=== PATIENT | male | born 1960 ===

== ENCOUNTER 2017-05-01 16:46 | Emergency (ER) | payer SELFPAY ==
[2017-05-01 19:28] LABS: #Basophils 0.1 thou/uL (0.0-0.2); #Eosinphils 0.1 thou/uL (0.0-0.7); #Lymphocytes 1.2 thou/uL (1.20-3.40); #Monocytes 0.4 thou/uL (0.11-0.59); #Neutrophils 3.5 thou/uL (1.40-6.50); %Eosinophils 2.7 % (0.0-10.0); %Lymphocytes 22.3 % (21.0-51.0); %Monocytes 7.5 % (0.0-10.0); %Neutrophils 66.5 % (42.0-75.0); Hemoglobin 14.1 g/dL (14.0-18.0); Mean Corpuscular HGB CONC 32.9 g/dL (32.0-36.0); Mean Corpuscular Hemoglobin 27.6 pg (27.0-31.0); Mean Corpuscular Volume 83.9 fl (80.0-94.0); Mean Platelet Volume 7.8 fL (7.4-10.4); Platelet Count 232 thou/uL (130-400); RBC Distribution Width 13.2 % (11.5-14.5); Red Blood Cell (RBC) Count 5.12 mill/uL (4.70-6.10); White Blood Cell (WBC) Count 5.3 thou/uL (4.8-10.8)
[2017-05-01 19:48] LABS: ALT (SGPT) 11 U/L (8-55); AST (SGOT) 9 U/L (5-34); Albumin 3.8 g/dL (3.5-5.0); Alkaline Phosphatase 99 U/L (40-150); Anion Gap 15 mmol/L (10-20); BUN (Urea Nitrogen) 15 mg/dL (8.4-25.7); Bilirubin, Total 0.3 mg/dL (0.2-1.2); Calc. Creatinine Clearance 0 mL/min (70-130); Calcium 9.5 mg/dL (7.8-10.44); Carbon Dioxide 22 mmol/L (22-29); Chloride 104 mmol/L (98-107); Estimated GFR-MDRD 80; Globulin 4.3 g/dL (2.4-3.5); Glucose 74 mg/dL (70-105); Potassium 3.9 mmol/L (3.5-5.1); Protein, Total 8.1 g/dL (6.0-8.3); Sodium 137 mmol/L (136-145)
[2017-05-01] MEDS ORDERED: Clindamycin 150 MG CAP PO SCH (21:15)
--- NOTE | 2017-05-02 06:33 | CON ---
DATE OF CONSULTATION: 05/01/2017 REQUESTING: Dr. Uyen Calvin. REASON FOR CONSULTATION: Lymphedema, mild cellulitis, cleared for discharge home. HISTORY OF PRESENT ILLNESS: Mr. Andrade is a 56-year-old gentleman with a history of chronic lymphede ma, severe obesity, recurrent lower extremity cellulitis. [facility] a few days a couple of months ago and drove down this way for reasons I did not delve into. He came to the Emergency Department today complaining of a several day history of increasing bilatera l lower extremities, right greater than left pain. He thought his cellulitis was coming back so want ed to be admitted. He is living in his car right now. Denies any fevers or chills, no chest pain or shortness of breath , no nausea, vomiting, diarrhea, constipation. The patient has some desquamation circumferentially around his leg. Chronically edematous and keep h is legs down. He does not use any wraps or pneumatic compression devices. He does not go to wound c are anywhere and does not have a primary doctor. Workup in the emergency department was completely normal. ER doctor wanted send the patient home and the patient was adamant about wanting to be admitted, so we were consulted to see if he need to be a dmitted or not. The patient has no other current complaints. PAST MEDICAL HISTORY: 1. Lymphedema. 2. Severe obesity. PAST SURGICAL HISTORY: None. HOME MEDICATIONS: None. ALLERGIES: DILAUDID, MORPHINE SULFATE and ZOSYN. Patient tolerated KEFLEX in the past, fine. FAMILY HISTORY: Unknown. SOCIAL HISTORY: Lives in his car. Denies tobacco or alcohol. No drugs. REVIEW OF SYSTEMS: A 10-point review of systems was attempted. The patient was not talkative and di d not want to answer any more questions. PHYSICAL EXAMINATION: VITAL SIGNS: Temperature 98.1, pulse 64, blood pressure 130/61, respiratory 20, O2 sat 90% on room a ir. GENERAL: He is fairly obese. He is disheveled looking as well as horrible. HEENT: Normocephalic and atraumatic. Pupils are equal, reactive bilaterally. Mucosa moist. No vis ible lesions. No thrush. NECK: Supple, without lymphadenopathy, JVD, or thyromegaly. He has normal carotid upstrokes. There are no bruits. LUNGS: Clear. No wheezes, no rales. Good air movement. Symmetrical chest excursion. CARDIOVASCULAR: Heart tones are distant. Normal S1 and S2. I do not appreciate an S4. I cannot he ar murmurs. ABDOMEN: Severely obese. It is nontender, nondistended. Good bowel sounds are present. EXTREMITIES: Show lymphedema of the bilateral extremities and some superficial varicosities. He has got approximately a 10 cm band around both of his mid tibia level areas with desquamating hyperpigme nted skin. It is not hot, it is not draining. There is weeping a little bit. He has 2+ edema in rock th lower extremities to the knee, little more on the right than the left. SKIN: Otherwise, warm, moist, well perfused. He has no other rashes or lesions. NEUROLOGIC: Cranial nerves II-XII grossly intact. Normal strength. He has no focal deficits. Norm al speech. Affect is off. He looks paranoid. MUSCULOSKELETAL: Otherwise normal. No inflamed joints and no palpable effusions. LABORATORY DATA: Sodium 137, potassium 3.9, chloride 104, bicarb 22, BUN 15, creatinine 0.97, glucos e 74, calcium 9.5, lactic acid 1.5. Liver functions normal. CBC showed a white count of 5.3, hemogl obin 14.1, hematocrit of 43.5 and platelet count of 232 with a normal differential. No radiographic studies were done. ASSESSMENT AND PLAN: 1. Minimal of any cellulitis of bilateral lower extremities. Likely, secondary to chronic edema. W e will place him on Keflex 1000 mg p.o. t.i.d. for 14 days and clindamycin [address] for [address] Singh did write the prescriptions. Recommend the patient keep his legs elevated. He can wrap t hem in Long wraps. I really had to get plugged with a primary doctor and wound care and chronic lymph edema care. He does not meet any criteria at all for hospitalization. Therefore, when I placed in [facility]. If he chooses not to take his antibiotics like he threatened to, then he should have be en taken out of the antibiotics a week or so the need to come back and get admitted. 2. Severe obesity. Patient was administered in the counseling. 3. Bilateral extremity lymphedema. The patient wants to be admitted and taken care of. Does not soriano ve any admission criteria. The patient will be discharged back to his car.
== END 2017-05-01 22:25 | disposition home or self-care (01) ==
LOC: ERS 16:46
DX: L03.116 Cellulitis of left lower limb (principal); L03.115 Cellulitis of right lower limb
CPT/HCPCS: 36415; 80053; 83605; 85025; 99283